=== PATIENT | female | born 1975 | race Two or more races ===

== ENCOUNTER 2017-01-13 20:13 | Emergency (ER) | payer OTHER ==
[~2017-01-13] VITALS: Ht 172.7 cm; Wt 68.0 kg
[2017-01-13 20:18] VITALS: BP 121/60
== END 2017-01-13 22:50 | disposition home or self-care (01) ==
LOC: ER 20:28
DX: S82.62XA Displaced fracture of lateral malleolus of left fibula, initial encounter for closed fracture (principal); X37.1XXA Tornado, initial encounter; Y93.89 Activity, other specified; Y92.89 Other specified places as the place of occurrence of the external cause; Y99.8 Other external cause status
CPT/HCPCS: 73610-TC; A4606; Z7610